=== PATIENT | male | born 1955 | race Caucasian/White ===

== ENCOUNTER 2019-09-22 13:36 | Emergency (ER) | payer OTHER, SELFPAY ==
[~2019-09-22] VITALS: Ht 177.8 cm; Wt 107.0 kg
[2019-09-22 13:43] VITALS: Ht 177.8 cm; Wt 107.0 kg
[2019-09-22 15:30] VITALS: BP 166/85
== END 2019-09-22 15:51 | disposition home or self-care (01) ==
LOC: ED 13:36
DX: S06.0X9A Concussion with loss of consciousness of unspecified duration, initial encounter (principal); S02.2XXA Fracture of nasal bones, initial encounter for closed fracture; R56.9 Unspecified convulsions; E11.9 Type 2 diabetes mellitus without complications; J44.9 Chronic obstructive pulmonary disease, unspecified; Z86.19 Personal history of other infectious and parasitic diseases; Y04.8XXA Assault by other bodily force, initial encounter; Y93.89 Activity, other specified; Y92.89 Other specified places as the place of occurrence of the external cause; Y99.8 Other external cause status
CPT/HCPCS: 90715; J1885; Q0092